=== PATIENT | male | born 2000 | race Caucasian/White ===

== ENCOUNTER → 2018-10-23 14:18 | Outpatient (CLI) | payer BC, SELFPAY ==
[2018-10-23 12:19] VITALS: BMI 24.3
== END ==
PROVIDERS: Family Provider Pediatrics; PCP Pediatrics; Referring Provider Physician Assistant; Visit Provider Physician Assistant
DX: K12.0 Recurrent oral aphthae (principal)
CPT/HCPCS: 87070

== ENCOUNTER → 2018-11-14 16:45 | Outpatient (CLI) | payer OTHER, BC, SELFPAY ==
[2018-11-14 16:25] VITALS: BMI 24.3
--- NOTE | 2018-11-14 16:50 | RAD_ITS ---
STUDY: X-RAY CHEST REASON FOR EXAM: Male, 18 years old. Cough TECHNIQUE: PA and lateral views of the chest. COMPARISON: None. FINDINGS: The lungs are clear and expanded. There is no demonstrated pleural abnormality. Normal size heart. Normal mediastinum and carol ann. Normal visualized pulmonary arteries. Normal visualized aortic arch and descending thoracic aorta. Normal visualized thoracic spine. Normal visualized ribs, clavicles, and shoulders. There is no demonstrated abnormality of the visualized soft tissue structures of the upper abdomen. RAD/Chest PA and Lateral IMPRESSION: Normal x-ray examination of the chest. Electronically Signed: Jeremi Guillermo MD at 17:05 EST , Service support ,
--- OUTSIDE RECORDS SUMMARY | 2019-01-19 08:00 | XMS RPT_ITS ---
:2000 Author Organization OHIP Care Team Providers Name Role Phone ANISA CHOU Attending Unavailable REFERRED, SELF Referring Unavailable ANISA CHOU Primary Care Unavailable Abdias Bird Attending Unavailable Anisa Chou Referring Unavailable Abdias Bird Attending Unavailable Abdias Bird Referring Unavailable Anisa Chou Primary Care Unavailable Mau Sawant SOFTWARE ENGINEERING SPECIALIST-C Attending Unavailable Anisa Chou Referring Unavailable Bruce Franks Attending Unavailable Anisa Chou Referring Unavailable Bruce Franks Attending Unavailable Bruce Franks Referring Unavailable Anisa Chou Primary Care Unavailable PROBLEMS PROBLEMS DATE TYPE CONDITION / CODE ATTENDING STATUS SOURCE 11/14/2018 Unknown J20.9 - Acute Bruce Franks Active [place] bronchitis, Community unspecified / Hospital J20.9(ICD-10) Repository 11/10/2018 Unknown J06.9 - Acute Mau Sawant Active [place] upper respiratory SOFTWARE ENGINEERING SPECIALIST-C Community infection, Hospital unspecified / Repository J06.9(ICD-10) 11/10/2018 Unknown J45.901 - Mau Sawant Active [place] Unspecified asthma SOFTWARE ENGINEERING SPECIALIST-C Community with (acute) Hospital exacerbation / Repository J45.901(ICD-10) 11/10/2018 Unknown K12.0 - Recurrent Abdias Bird Active [place] oral aphthae / Community K12.0(ICD-10) Hospital Repository PROCEDURES PROCEDURES No Procedure Records FoundRESULTS RESULTS URGENT CARE VISIT Observed: 11/14/2018 Status: F Source: [place] REPORT 6:28 PM [facility] [place] [facility] [address] [place] [address] [address] [place] [address] OFFICE VISIT Date of Service: 11/14/18 MR#: [id number] Acct: [id number] Name: MICHAEL ORDOÑEZ Rep #: [id number] : 2000 Provider: Bruce NOE Age/Sex: 18/M Location: [facility] Status: Signed Intake Vital Signs11/14/18 Body Mass Index (BMI) 24.3 11/14/18 Weight: 223 lb 11/14/18 Blood Pressure 128/88 H Intake Visit Reasons: CONGESTION Chief Complaint: CONGESTION Is patient in pain?: No Allergies No Known Allergies Allergy (Verified 11/14/18 16:24) Medications albuterol sulfate HFA 90 mcg/actuation aerosol inhaler 1 puff INHALATION Q6H PRN #8 g 11/08/18 [Rx Confirmed 11/08/18] prednisone 20 mg tablet 40 mg PO QDAY #10 tab 11/08/18 [Rx Confirmed 11/08/18] cephalexin 500 mg capsule 500 mg PO Q12H 10 Days #20 cap 11/14/18 [Rx Confirmed 11/14/18] ipratropium-albuterol 0.5 mg-3 mg(2.5 mg base)/3 mL nebulization soln 3 ml INHALATION Q8H 5 Days #90 ml 11/14/18 [Rx Confirmed 11/14/18] PFSH Medical History Asthma (Acute) NECK/BACK PAIN (Acute) Severe headache (Acute) Surgical History History of tonsillectomy (Acute) Social History Smoking Status: Never smoker alcohol intake: never HPI HPI Chief Complaint: CONGESTION Details: MICHAEL ORDOÑEZ, is a 18 M who presents to the office today for ongoing chest congestion, cough for the past 3 weeks. Patient was seen here on 11/08/2018 for similar symptoms and states that the medications that he had at that point had no effect on his cough. He reports that his cough has been productive of phlegm however denies hemoptysis, shortness of breath or difficulty breathing other than some slight shortness of breath after a coughing fit. Patient does state that he has been using his albuterol inhaler which does help somewhat with the bronchospasms however they returned shortly thereafter. He denies fever, chills, sweats. No nausea, vomiting, diarrhea. No other associated symptoms or alleviating/aggravating factors. ROS Const Constitutional: No fever(s), chills, headache(s), night sweats or abnormal sleep pattern ENT ENT: Positive for nasal discharge, nasal congestion and post nasal drip; no headache(s), ear pain, ear discharge or sore throat Resp Respiratory: Positive for cough Cough: Yes productive, wheezing and pain with cough; no hemoptysis or shortness of breath Cardio Cardiology: No chest pain at rest or shortness of breath Neuro Neurology: No headache(s), behavioral changes or confusion Psych Psychiatric: No abnormal sleep pattern, No behavioral changes, No confusion Aller/Imm Allergy/Immunologic: Positive for wheezing Exam Const General: cooperative, well developed [facility] Head: normal to inspection Ears: hearing grossly normal bilaterally Nose: nasal discharge clear Mouth: oral mucosae normal Throat: abnormal tonsil bilaterally, postnasal drainage Resp Effort AND Inspection: normal respiratory effort, no audible wheezes, not labored, able to speak in complete sentences, symmetric chest movement, cough Quality of cough: dry Auscultation: Bilateral: Crackles (Crackles did improve after forceful cough.) Cardio Palpation: normal PMI Rate: regular rate Rhythm: regular rhythm Neuro General: alert, CN's II-XI intact bilaterally Psych Appearance: grossly normal Mental Status: mental status grossly normal Assessment AND Plan Problems 1. Acute bronchitis, unspecified organism J20.9 Status Acute Plan Chest x-ray revealing a normal x-ray of the chest per radiologist interpretation. Patient states that he does have a nebulizer at home therefore he was started on DuoNeb 3 times daily for the next 5 days as well as Keflex 500 mg twice daily for 10 days. Encouraged to get plenty of rest, drink lots of clear liquids, and use Tylenol or Ibuprofen (unless contraindicated) for fever and comfort. Patient also educated on other symptomatic management techniques. To be seen in 7-10 days if no improvement; sooner if worsening of symptoms. Patient advised of potential red flags including but not limited to worsening shortness of breath, hemoptysis and other signs of respiratory worsening and when appropriate to report to the ED. Patient verbalized understanding and agreement with all the above. Orders Orders: Medications New: ipratropium-albuterol 0.5 mg-3 mg(2.5 mg base)/3 mL Inhalation Q8H 5 days 90 mL 0RF J20.9 3 mL Coding Level of Care Code Off vis,est,level 4 Diagnoses Acute bronchitis, unspecified organism J20.9 Bronchitis organism: unspecified organism 11/14/18 1828 <Electronically signed by Bruce NOE> Date Bruce NOE Cosigner Signature: Date (if applicable) CC: CHEST PA AND LATERAL Observed: 11/14/2018 Status: F Source: [place] 4:50 PM [facility] [place] [facility] Imaging Services [address] [place] [id number] Chest PA and Lateral MR#: [id number] Acct: [id number] Name: MICHAEL ORDOÑEZ Rep #: [id number] : 2000 M 18 From: Jeremi Guillermo MD PCP: Anisa Chou MD Status: REG CLI Study: Chest PA and Lateral Date of Exam: 11/14/18 Exam# [id number] Ordering Dr: Bruce Franks STUDY: X-RAY CHEST REASON FOR EXAM: Male, 18 years old. Cough TECHNIQUE: PA and lateral views of the chest. COMPARISON: None. FINDINGS: The lungs are clear and expanded. There is no demonstrated pleural abnormality. Normal size heart. Normal mediastinum and carol ann. Normal visualized pulmonary arteries. Normal visualized aortic arch and descending thoracic aorta. Normal visualized thoracic spine. Normal visualized ribs, clavicles, and shoulders. There is no demonstrated abnormality of the visualized soft tissue structures of the upper abdomen. RAD/Chest PA and Lateral IMPRESSION: Normal x-ray examination of the chest. Electronically Signed: Jeremi Guillermo MD at 17:05 EST , Service support , CC: Bruce NOE; Anisa Chou MD Local Sales Associate: Signed URGENT CARE VISIT Observed: 11/08/2018 Status: F Source: [place] REPORT 2:18 PM [facility] [place] [facility] [address] [place] [address] OFFICE VISIT Date of Service: 11/08/18 MR#: [id number] Acct: [id number] Name: MICHAEL ORDOÑEZ Alex Rep #: [id number] : 2000 Provider: Mau Sawant NP Age/Sex: 18/M Location: [facility] Status: Signed Intake Vital Signs11/08/18 Body Mass Index (BMI) 24.3 11/08/18 Height 6 ft 11/08/18 Weight: 223 lb 11/08/18 Body Mass Index (BMI) 30.2 11/08/18 Blood Pressure 118/70 11/08/18 Respiratory Rate 14 Intake Visit Reasons: COLD/CONGESTION Chief Complaint: 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: No Accompanied by: SELF Is patient in pain?: No Allergies No Known Allergies Allergy (Verified 11/08/18 11:45) Medications albuterol sulfate HFA 90 mcg/actuation aerosol inhaler 1 puff INHALATION Q6H PRN #8 g 11/08/18 [Rx Confirmed 11/08/18] azithromycin 250 mg tablet See Rx Instructions PO .COMPLEX #6 tab 11/08/18 [Rx Confirmed 11/08/18] prednisone 20 mg tablet 40 mg PO QDAY #10 tab 11/08/18 [Rx Confirmed 11/08/18] PFSH Medical History Asthma (Acute) NECK/BACK PAIN (Acute) Severe headache (Acute) Surgical History History of tonsillectomy (Acute) Social History Smoking Status: Never smoker alcohol intake: never HPI HPI Chief Complaint: CONGESTION Details: MICHAEL ORDOÑEZ, is a 18 M who presents to the office today for an acute visit of cough and chest congestion times 2 weeks. He has a past medical history of asthma was previously on Advair, however is no longer on any maintenance medication. The patient states that his symptoms of cough congestion has been going on for approximately 2 weeks and has been progressively worsening. He has tried bicy-sed-expvlhk DayQuil and NyQuil with only mild relief. He states that his cough is productive of yellow mucus and that at times he feels chest tightness with coughing. He denies any recent exposure to sick contacts. He denies any other ijzd-nvp-atfoshh treatments. He denies any other aggravating or relieving factors. He otherwise denies any fever, chills, nausea, vomiting, shortness of breath, chest pain or pressure, syncope or presyncopal episode. ROS Const Constitutional: No fever(s), chills, weakness, change in appetite, sleep problems, fatigue, malaise or frequent falls Eyes Eyes: No blurry vision, change in vision, double vision or discharge ENT ENT: Positive for nasal congestion; no abnormal hearing, ear pain, ear pressure or dizziness/vertigo Resp Respiratory: Positive for cough and chest congestion (Chest tightness); no wheezing or shortness of breath Cardio Cardiology: No chest pain at rest, chest pain with exertion, shortness of breath, dyspnea on exertion, lightheadedness, irregular heart rhythm, fast heart rate, palpitations, orthopnea or generalized swelling Gastro GI: No abdominal pain, change in bowel habits, constipation, diarrhea, vomiting or nausea/dyspepsia Musc Musculoskeletal: No joint pain, back pain, limited range of motion, joint swelling, muscle weakness, tingling or numbness Skin Skin: No change in skin color, wounds, rash or itching Neuro Neurology: No weakness, frequent falls, abnormal hearing, tingling, numbness, unsteady gait/balance, dizziness, loss of vision or memory loss Psych Psychiatric: No change in appetite, No memory loss, No anxiety, No depression, No Thoughts of harming yourself/Others Endo Endocrine: No fatigue, increased thirst/drinking, increased urination, increased hunger or heat intolerance Aller/Imm Allergy/Immunologic: No wheezing, itchy eyes or seasonal allergy symptoms Servando/Lymp Hematologic/Lymphatic: No easy bleeding, easy bruising or enlarged lymph nodes Exam Const General: cooperative, comfortable, no acute distress Nutritional Appearance: average body habitus, well nourished Orientation: alert, oriented x3 Limitations: mental status not altered HENMT Head: normal to inspection Ears: hearing grossly normal bilaterally Nose: external nose normal Resp Effort AND Inspection: normal respiratory effort, able to speak in complete sentences, cough Other: Scattered rhonchi noted to the left posterior lung base and expiratory wheezing in all posterior lung zheng as well, some of the wheezing did clear with coughing Cardio Palpation: normal PMI Rate: regular rate Heart Sounds: S1 normal, S2 normal, normal S1 and S2, no click, no gallops, no murmurs, no rubs Musc Musculoskeletal: No muscle weakness Skin General: no rashes or lesions noted, elasticity normal, turgor normal Lesions: no lesions Rashes: no rashes Neuro General: alert, awake, oriented x3, CN's II-XI intact bilaterally Speech: speech normal Gait: normal gait Motor: muscle tone normal throughout Extrem General: normal to inspection, normal gait, no edema, no pedal edema Psych Appearance: grossly normal Mental Status: mental status grossly normal Affect: normal affect Attitude: cooperative Thought Process: normal Assessment AND Plan Problems 1. URI (upper respiratory infection) J06.9 2. Asthma exacerbation J45.901 Plan Given patient's presenting signs and symptoms and his assessment will cover him for an asthma exacerbation with a prednisone burst, albuterol inhaler and we will treat empirically with azithromycin. Educated patient on potential side effects of medications and how to properly take them. Did inform patient that he should follow-up with his PCP for reassessment. He may continue treating his upper respiratory symptoms with his zdxx-wkd-hyzzrly cold preparations. Advised to watch the total intake of Tylenol. Discussed signs of worsening symptoms that require urgent medical attention. Patient verbalized understanding. Dragon disclaimer Medications New: azithromycin Take two tablets by mouth on day one then one tablet by mouth on days 2-5 6 tabs 0RF albuterol sulfate HFA 90 mcg/actuation (Vento1 puff Inhalation Q6H PRN 8 grams 0RF shortn erica HFA) ess of breath or wheezing Coding Level of Care Code Off vis,est,level 3 Diagnoses URI (upper respiratory infection) J06.9 Asthma exacerbation J45.901 11/08/18 1418 <Electronically signed by Mau JOHN> Date Mau JOHN Cosigner Signature: Date (if applicable) CC: URGENT CARE VISIT Observed: 10/23/2018 Status: F Source: [place] REPORT 12:33 PM [facility] [place] [facility] [place] [address] OFFICE VISIT Date of Service: 10/23/18 MR#: [id number] Acct: [id number] Name: MICHAEL ORDOÑEZ Rep #: [id number] : 2000 Provider: Abdias NOE Age/Sex: 18/M Location: [facility] Status: Signed Intake Vital Signs10/23/18 Body Mass Index (BMI) 24.3 10/23/18 Height 6 ft 10/23/18 Weight: 223 lb 10/23/18 Body Mass Index (BMI) 30.2 10/23/18 Blood Pressure 120/74 Intake Visit Reasons: SORE ON THE BACK OF THE THROAT Chief Complaint: 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 Patient notes localized tenderness to the same, being concerned as he chews tobacco for approximately 2 years to date. He notes no complaints of fever, chills, sweats, rash, cough, chest pain/shortness of breath, weight gain/loss. He has taken no owmy-atu-umyzcrm products to assist with symptoms. He notes no other associated symptoms and no other alleviating or aggravating factors. ROS Const Constitutional: No other (ROS negative x10 other than as noted above) Exam Const General: cooperative, healthy appearing, no acute distress, comfortable Nutritional Appearance: average body habitus Orientation: alert, awake, oriented x3 HENMT Head: normal to inspection Ears: hearing grossly normal bilaterally, external ears normal, TM's normal bilaterally, EAC's normal Nose: external nose normal, nares normal, septum normal, no nasal discharge Face and sinus: normal facial exam, face symmetric, sinuses nontender Mouth: abnormal oral mucosae (Erythematous open ulceration posterior palate), tongue normal, lip normal, other (Rapid strep test today negative) Teeth and gingiva: dentition normal, gingiva normal Throat: uvula midline, posterior oropharynx normal, no postnasal drainage Eyes General: appearance normal, both eyes and all related structures Neck Neck: normal visual inspection, full ROM, no lymphadenopathy, no meningeal signs, supple Neck mass: No Thyroid: thyroid normal Lymphatic: no lymphadenopathy noted Chest Chest palpation AND inspection: normal inspection of the chest Resp Effort AND Inspection: normal respiratory effort, able to speak in complete sentences Auscultation: Bilateral: Clear to Auscultation Cardio Palpation: normal PMI Rate: regular rate Rhythm: regular rhythm Heart Sounds: S1 normal, S2 normal, no gallops, no murmurs, no rubs Pulses: radial pulses present GI Inspection: normal to inspection Palpation: soft, no hepatosplenomegaly Skin General: no rashes or lesions noted Neuro General: alert, awake, oriented x3, gait normal Cognition: normal cognition Speech: speech normal Gait: normal gait Motor: muscle tone normal throughout Sensory Exam: no sensory deficits noted Psych Appearance: grossly normal Mental Status: mental status grossly normal Mood: congruent mood Affect: normal affect Speech and Movement: speech and movement normal Attitude: cooperative Thought Process: normal Thought Content: normal Judgment: judgment good Assessment AND Plan Problems 1. Aphthous ulcer of mouth K12.0 Plan - By presentation. Patient aware today's rapid strep test was negative therefore culture of ulceration sent to lab for further evaluation. Supportive measures as instructed today. Clear fluids, rest, Advil/Tylenol as needed for symptomatic relief. Follow-up with PCP in 5-7 days should symptoms not improve, sooner should symptoms worsen or any other concerns develop. Patient states acknowledging understanding all the above. This note was generated with [employer] dictation software. It may contain incorrect words, spelling, and punctuation that were not noted in checking the note before signing. Coding Level of Care Code Off vis,new,level 3 Diagnoses Aphthous ulcer of mouth K12.0 10/23/18 1233 <Electronically signed by Abdias NOE> Date Abdias NOE Cosigner Signature: Date (if applicable) CC: Observed: 10/23/2018 Status: F Source: [place] CULTURE, THROAT 12:30 PM [facility] [place] Culture, Throat Normal throat jyotsna isolated. No beta-hemolytic streptococcus isolated. Performed By: #### M100.1000 #### [facility] [place], [address] PROGRESS NOTE Observed: 04/15/2018 Status: COMPLETED Source: [place] 11:10 AM [facility] REPOSITORY Patient ID: Michael Ordoñez is a 17 y.o. male. His chief complaint(s) include: 17 YEAR WELL CHILD Assessment 1. Routine general medical examination at a health care facility Plan Michael was seen today for 17 year well child. Diagnoses and all orders for this visit: Routine general medical examination at a health care facility - Behavioral/Emotional Assessment w Score - PHQ-9 Return in about 1 year (around 04/15/2019) for well check. Letter written for getting into army. Subjective HPI Comments: Patient had been going through a lot in 2013 like changing schools and family divorce. Patient had issues with sleeping and PVCs as well at that time. Patient now wanting to go into army and needs explanation for these diagnoses. He is unaccompanied. 17 YEAR WELL CHILD School and Activities School Grade: work force. His school performance includes: doing well. Home: Michael eats meals with family, has an adult to turn to for help and is permitted and able to make independent decisions. Eating: Michael eats regular meals including fruits and vegetables, eats breakfast, limits fast food, drinks non-sweetened liquids and has a calcium source. Activities & Sports: He has friends and has a job. Drugs: He does not use tobacco, does not use drugs and does not use alcohol. Safety: He has a violence free home, has peer relationships free from violence and uses seat belt. Sex: Michael is sexually active. STD screening offered and declined. Michael always uses condoms. Suicidality: He has no anxiety, does not have mood swings, has no suicidal ideation and has no homicidal ideation. Output Urine and Stool Pattern: Urine and Stool Pattern: Normal stool pattern, normal urine pattern. Stool Consistency: soft Sleep Sleeping Difficulty: no difficulty sleeping Hours of sleep at a time: 8 Teen Anticipatory Guidance The following anticipatory guidance was reviewed during the visit: Nutrition: limit junk food/fast food and soft drinks. Safety: home safety. Health: age appropriate dental care, age appropriate sleep habits, elevated noise and hearing, avoid situations where drugs and alcohol are present, don't smoke or chew tobacco, learn how to say 'no' to sex, puberty/sexual development/contraceptions/STDs and limit sun exposure/use sunscreen. CRAFFT Assessment Has not used alcohol or other drugs. Has not ridden in a CAR driven by someone (including self) who was high or had been using alcohol or drugs. Screenings Previous Vaccine Reactions: No. Life events information was reviewed-no referral needed Hearing Vision Concerns: The caregiver has no concerns about the patient's hearing. The caregiver has no concerns about the patient's vision. Primary Care Review of Systems Objective Vitals: 04/15/18 1101 BP: (!) 159/59 Pulse: 75 Weight: 97.5 kg Height: 179 cm Body mass index is 30.43 kg/m . Physical Exam Constitutional: He appears well. He is active. No distress. HENT: Head: Atraumatic. Right Ear: Tympanic membrane and external ear normal. Left Ear: Tympanic membrane and external ear normal. Nose: Nose normal. Mouth/Throat: Mucous membranes are moist. Dentition is normal. Oropharynx is clear. Eyes: Conjunctivae and EOM are normal. No strabismus. Pupils are equal, round, and reactive to light. Neck: Normal range of motion. Neck supple. Thyroid normal. No neck adenopathy. Cardiovascular: Normal rate, regular rhythm, S1 normal and S2 normal. Pulses are palpable. No murmur heard. Pulmonary/Chest: Breath sounds normal. No respiratory distress. Exhibits no deformity. Abdominal: Soft. Bowel sounds are normal. He exhibits no distension and no mass. There is no hepatosplenomegaly. There is no tenderness. Genitourinary: Testes normal and penis normal. No inguinal hernia noted. Musculoskeletal: Normal range of motion. Back: He exhibits no scoliosis. Neurological: He is alert. He has normal strength. He exhibits normal muscle tone. Gait normal. Skin: No rash noted. No pallor. Skin is warm. Vitals reviewed: Blood pressure (!) 159/59, pulse 75, height 179 cm, weight 97.5 kg. ALLERGIES ALLERGIES DATE TYPE / CODE NAME / CODE REACTION SEVERITY SOURCE 11/14/2018 Drug No Known Unknown [place] Allergy/555313084(S Allergies/F0019 Formerly [facility] NOMED [place]) [address](RXNORM) Hospital Repository Miscellaneous NO KNOWN [place] Allergy/[id number](S ALLERGIES [facility] Hospital Repository ENCOUNTERS ENCOUNTERS ADMIT/DISCHARGE ACCOUNT ADMITTING ENCOUNTER LOCATION SOURCE NUMBER CLASS 11/14/2018 [id number] Ambulatory [facility] ing:MTRAD Repository 11/14/2018/11/14/19 [id number] Ambulatory BMSBuilding:B [place] [facility] [place] Repository 11/08/2018/11/08/19 [id number] Ambulatory B[facility]Building:B [place] [facility] [place] [facility] Repository 10/23/2018 [id number] Ambulatory [facility] ing:LABSPEC Repository 10/23/2018/10/23/20 [id number] Ambulatory BMSBuilding:B [place] [facility] [place] Repository 04/15/2018/04/15/20 [id number] Ambulatory Building:[address] Repository PAYERS PAYERS ENCOUNTER GUARANTOR PAYER SUBSCRIBER SOURCE 11/14/2018 MICHAEL Johnson Primary CESAR MASSEYDOB: [place] [id number] [place] Insurance:CIGNAPolicpeggy [id number] [facility], Number: [facility] [address]Dvv: [id number] Repository Date:1787-29-14FS [address] () [id number], [place] [address]VL: 11/14/2018 Secondary DAVID CRANDALLB: [place] Insurance:ANTHEMPolicy [id number] Formerly [facility] Number: [facility] [id number] Repository Date:2936-61-92WZ [address] [place] [address]NX: 11/14/2018 Tertiary NOT GIVENUNK [place] Insurance:SELF PAY [facility] Number: Effective Repository Date:2018-11-14 11/14/2018 MICHAEL Johnson Primary CESAR MASSEYDOB: [place] [id number] [place] Insurance:CIGNAPolicy [id number] [facility], Number: [facility] [address]Ruw: [id number] Repository Date:8908-59-11AP [address] () [address], [place] [address]DD: 11/14/2018 Secondary DAVID E ELDERDOB: [place] Insurance:ANTHEMPolicy [id number] Community Number: Hospital [id number] Repository Date:4848-89-89ZJ [id number] [place] [address]RB: 11/14/2018 Tertiary NOT GIVENUNK [place] Insurance:SELF PAY [facility] Number: Effective Repository Date:2018-11-14 11/08/2018 MICHAEL Johnson Primary CESAR MASSEYDOB: [place] [id number] [place] Insurance:CIGNAPolicy [id number] [facility]ly [facility], Number: [facility] [address]Yly: [id number] Repository Date:7471-75-82DB [address] () [place], [place] [address]PJ: 11/08/2018 Secondary DAVID E ELDERDOB: [place] Insurance:ANTHEMPolicy [id number] Community Number: Hospital [id number] Repository Date:8912-78-90PG [id number] [place] [address]VA: 11/08/2018 Tertiary NOT GIVENUNK [place] Insurance:SELF PAY [facility] Number: Effective Repository Date:2018-11-08 10/23/2018 MICHAEL Johnson Primary DAVID E ELDERDOB: [place] [id number] [place] Insurance:ANTHEMPolicy [id number] [facility]ly [facility], Number: [facility] [id number]: [id number] Repository Date:4873-43-29TW [address] () [address], [place] [address]QW: 10/23/2018 Secondary NOT GIVENUNK [place] Insurance:SELF PAY [facility] Number: Effective Repository Date:2018-10-23 10/23/2018 MICHAEL Johnson Primary David E ElderDOB: [place] [id number] [place] Insurance:ANTHEMPolicy [id number] Formerly [facility] [address] Number: [place], [place] [address]Onq: [id number] Repository Date:1983-26-90FT [address] () [address], [place] [address]SP: 10/23/2018 Secondary NOT GIVENUNK [place] Insurance:SELF PAY [facility] Number: Effective Repository Date:2018-10-23 04/15/2018 MICHAEL Johnson Primary CESAR GILESB: Nidhi CRANDALLB: Insurance:LOIZA [id number] Children's [id number] [facility] [place] Number: [place] Repository [facility], [id number] [place] [address]Len: Date: () 04/15/2018 Secondary DAVID [place] Insurance:Juventino CRANDALLB: Children's Number: [id number] [facility] [id number] Repository Date: [address], [place] [address]
== END ==
PROVIDERS: Family Provider Pediatrics; PCP Pediatrics; Referring Provider Physician Assistant Surgical; Visit Provider Physician Assistant Surgical
DX: J20.9 Acute bronchitis, unspecified (principal)
CPT/HCPCS: 71046

== ENCOUNTER → 2019-04-27 | Outpatient (CLI) | payer OTHER, BC, SELFPAY ==
[2018-11-14 16:25] VITALS: BMI 24.3
--- NOTE | 2019-04-27 08:32 | RAD_ITS ---
STUDY: X-RAY - LEFT ANKLE REASON FOR EXAM: Male, 18 years old. Rolled ankle and pain TECHNIQUE: 3 view(s) of the ankle. COMPARISON: None. FINDINGS: Normal visualized distal tibia and fibula. Normal medial and lateral malleoli. Normal tibiotalar articulation and ankle mortise. Normal visualized talus and calcaneus. The visualized subtalar, talonavicular, calcaneocuboid and tarsal articulations are normal. Lateral soft tissue swelling. RAD/Ankle min 3 Views IMPRESSION: No acute osseous injury is evident. Electronically Signed: Benjamin Lyon MD at 8:54 EDT Tel , Service support ,
--- NOTE | 2019-04-27 08:32 | RAD_ITS ---
STUDY: X-RAY - LEFT FOOT CLINICAL: Male, 18 years old. Rolled ankle, lateral swelling TECHNIQUE: 3 view(s) of the foot. COMPARISON: None. FINDINGS: Normal talus, calcaneus, and tarsal bones. Normal visualized subtalar, talonavicular, calcaneocuboid, tarsal and tarsometatarsal articulations. Normal metatarsi. Normal metatarsophalangeal joint of the great toe. Normal tibial and fibular sesamoid bones. Normal interphalangeal joint of the great toe. Normal phalanges of the great toe. Normal second through fifth metatarsophalangeal joints. Normal interphalangeal joints and phalanges of the lesser toes. The soft tissue structures are unremarkable. RAD/Foot min 3 Views IMPRESSION: No acute osseous injury is evident. Electronically Signed: Benjamin Lyon MD at 9:03 EDT Tel , Service support ,
== END | disposition home or self-care (01) ==
PROVIDERS: Family Provider Pediatrics; PCP Pediatrics; Referring Provider Physician Assistant; Visit Provider Physician Assistant
DX: S99.912A Unspecified injury of left ankle, initial encounter (principal); S99.922A Unspecified injury of left foot, initial encounter
CPT/HCPCS: 73610; 73630

== ENCOUNTER → 2019-07-20 08:37 | Outpatient (CLI) | payer OTHER, SELFPAY ==
[2019-07-20 08:14] VITALS: BMI 24.3
[2019-07-20 12:28] LABS: Basophil# 0.06 X10^3/uL; Basophil% 0.9 % (0-1); Eosinophil# 0.13 X10^3/uL; Hematocrit 46.7 % (40-54); Hemoglobin 15.1 g/dL (13.0-16.5); Lymphocyte % 25.8 % (19-41); Mean Corp Hgb Conc 32.3 g/dL (32-36); Mean Corpuscular Hgb 28.5 pg (27.0-32.0); Mean Corpuscular Volume 88.3 fL (80-94); Mean Platelet Vol. 10.9 fl (6.2-12.0); Monocyte# 0.74 X10^3/uL; Monocyte% 11.2 % (0-10); NRBC Flagged by Analyzer 0 % (0-5); Neutrophil # 3.95 X10^3/uL (2.7-7.7); Neutrophil % 59.8 % (47-70); Platelet Count 232 K/mm3 (150-450); RBC Distribution Width CV 11.9 % (11.6-14.6); RBC Distribution Width SD 38.1 fl (35.1-43.9); Red Blood Count 5.29 M/mm3 (4.6-6.2); White Blood Count 6.6 K/mm3 (4.4-11.0)
[2019-07-20 12:45] LABS: ALB/GLOB Ratio 1.1 RATIO (0.9-2.4); AST(SGOT) 17 U/L (15-37); Alanine Aminotransfer ALT/SGPT 37 U/L (16-61); Albumin, Serum 4.1 g/dL (3.2-5.0); Alkaline Phosphatase 74 U/L (45-117); Anion Gap 5 (5-15); BUN 20 mg/dL (7-18); BUN/Creat Ratio 18.2 RATIO (10-20); Calcium,Total 9.1 mg/dL (8.5-10.1); Chloride 107 mmol/L (98-107); Cholesterol 145 mg/dL (200); EST Glomerular Filtration Rate 90 mL/min (>60); Est Glom Filt Rate - Afr Amer 109 mL/min (>60); Globulin 3.6 g/dL (2.2-4.2); Glucose 97 mg/dL (74-106); High Density Lipoprotein 32 mg/dL; Potassium 4.9 mmol/L (3.5-5.1); Protein, Total 7.7 g/dL (6.4-8.2); Sodium Level 141 mmol/L (136-145); Thyroid Stim Hormone (TSH) 2.43 uIU/mL (0.358-3.74); Triglycerides 110 mg/dL; Very Low Density Lipoprotein 22 mg/dL (5-40)
== END ==
PROVIDERS: Family Provider Pediatrics; PCP Internal Medicine; Visit Provider Internal Medicine
DX: I49.3 Ventricular premature depolarization (principal); J45.909 Unspecified asthma, uncomplicated; R03.0 Elevated blood-pressure reading, without diagnosis of hypertension
CPT/HCPCS: 36415; 80053; 80061; 84439; 84443; 85025

== ENCOUNTER → 2020-08-08 | Outpatient (CLI) | payer OTHER, SELFPAY ==
[2020-08-03 16:07] VITALS: BMI 24.3
--- NOTE | 2020-08-08 07:44 | EKG12_ITS ---
Test Reason : Blood Pressure : / mmHG Vent. Rate : 077 BPM Atrial Rate : 077 BPM P-R Int : 166 ms QRS Dur : 096 ms QT Int : 368 ms P-R-T Axes : 022 005 024 degrees QTc Int : 416 ms Normal sinus rhythm with sinus arrhythmia Normal ECG Confirmed by THAD GAN, DANYEL ([id number]), web content editor CHAPARRITA HOOKER ([id number]) on 08/09/2020 1:08:27 PM Referred By: Tania Bojorquez Confirmed By:DANYEL ONEIL MD
== END | disposition home or self-care (01) ==
PROVIDERS: PCP Internal Medicine; Referring Provider Internal Medicine; Visit Provider Internal Medicine
DX: L90.6 Striae atrophicae (principal); R00.2 Palpitations; R07.89 Other chest pain
CPT/HCPCS: 36415; 82533; 93005

== ENCOUNTER → 2020-08-23 | Outpatient (CLI) | payer OTHER, SELFPAY ==
[2020-08-03 16:07] VITALS: BMI 24.3
--- NOTE | 2020-08-23 11:50 | ECHOCS_ITS ---
Reason For Study: Palpitations Procedure This was a 2D Doppler, Color Flow transthoracic echocardiogram. The study was technically difficult. Contrast injection was performed. Exam performed in department. Left Ventricle Normal LV size. Left ventricular systolic function is normal. The estimated ejection fraction is 60 %. Transmitral doppler flow suggestive of impaired relaxation of left ventricle. No regional wall motion abnormalities noted. Right Ventricle Normal RV size. Normal systolic function. Atria Normal left atrium. Normal right atrium. No doppler evidence for ASD. Mitral Valve There is no mitral annular calcification. Normal mitral valve. Trivial mitral valve insufficiency. Tricuspid Valve Normal tricuspid valve. Trivial tricuspid valve insufficiency. Unable to estimate RV systolic pressure/pulmonary artery pressure due to technically difficult study. Aortic Valve Trisinus/trileaflet aortic valve. Normal aortic valve. Pulmonic Valve The pulmonic valve is not well visualized. Trivial pulmonic valve insufficiency. Great Vessels The aortic root is not well visualized. Pericardium/Pleural No pericardial effusion. Medication 22 gauge I.V. with prn adaptor inserted into right arm. Diluted definity 2ml given slow IV push to enhance endocardial definition. MMode/2D Measurements & Calculations LVIDd: 5.2 cm IVSd: 1.2 cm LA dimension: 3.6 cm LVIDs: 3.2 cm LVPWd: 1.1 cm FS: 37.6 % LAV(MOD-bp): 35.4 ml LA A4 area: 15.2 cm2 RA A4 area: 15.7 cm2 LAV(MOD-bp) Indexed: 15.4 ml/m2 LAV(MOD-sp2): 29.9 ml LAV(MOD-sp4): 34.0 ml Time Measurements MV dec time: 0.17 sec Doppler Measurements & Calculations MV E max cristofer: 56.0 cm/sec Lat Peak E' Cristofer: 10.6 cm/sec Med Peak E' Cristofer: 8.4 cm/sec MV A max cristofer: 78.6 cm/sec E/E' lat: 5.3 E/E' med: 6.7 MV E/A: 0.71 MV V2 max: 85.3 cm/sec MV P1/2t max cristofer: 73.2 cm/sec Ao V2 max: 122.1 cm/sec MV max P.9 mmHg MV P1/2t: 76.5 msec Ao max P.0 mmHg MV V2 mean: 46.5 cm/sec MV dec slope: 280.4 cm/sec2 MV mean P.99 mmHg MV V2 VTI: 22.1 cm MVA(P1/2t): 2.9 cm2 LV V1 max: 98.4 cm/sec PA V2 max: 94.4 cm/sec LV V1 max P.9 mmHg Interpretation Summary The study was technically difficult. Contrast injection was performed. Left ventricular systolic function is normal. The estimated ejection fraction is 60 %. Trivial mitral valve insufficiency. Trivial tricuspid valve insufficiency. Trivial pulmonic valve insufficiency. Unable to estimate RV systolic pressure/pulmonary artery pressure due to technically difficult study. Transmitral doppler flow suggestive of impaired relaxation of left ventricle Ordering Physician: Tania Bojorquez Referring Physician: Tania Bojorquez Performed By: Jaquan Emerson RCS
--- NOTE | 2020-08-23 13:18 | STRESSREP_ITS ---
Stress Test Report Date: 08-23-2020 Procedure: Exercise tolerance test Indications: PVCs Consent: Per the patient Procedure: The patient exercised on a Shawn protocol for 6 minutes completing Stage II achieving a peak heart rate of 171 bpm (86% predicted maximal heart rate) with a peak blood pressure 194/70 mmHg and a peak MET capacity of approximately 7 MET's. The baseline ECG demonstrated normal sinus rhythm. The peak exercise ECG demonstrated no obvious ECG changes. There was an isolated PAC during exercise. The functional capacity was considered average. The patient had no complaint of chest discomfort during exercise or recovery. The examination was discontinued secondary to dyspnea. Impression: 1. Technically adequate (percent predicted maximal heart rate greater than 85%) exercise tolerance test 2. Peak exercise ECG with no obvious ECG changes 3. There was an isolated PAC during exercise This note was generated with veriCAR dictation software. It may contain incorrect words, spelling, and punctuation that were not noted in checking the note before signing.
== END | disposition home or self-care (01) ==
LOC: CVS 11:49
PROVIDERS: PCP Internal Medicine; Referring Provider Internal Medicine; Visit Provider Internal Medicine
DX: I49.3 Ventricular premature depolarization (principal); R00.2 Palpitations
CPT/HCPCS: 93017; 93306; Q9957; A4216; C8929

== ENCOUNTER → 2020-08-30 16:22 | Outpatient (CLI) | payer OTHER, SELFPAY ==
[2020-08-30 16:01] VITALS: BMI 32.5
[2020-08-30 17:30] LABS: D-Dimer Quantitative (DVT/PE) < 0.27 FEU/ug/m (0.27-0.49)
== END ==
PROVIDERS: PCP Internal Medicine; Referring Provider Internal Medicine; Visit Provider Internal Medicine
DX: R07.81 Pleurodynia (principal)
CPT/HCPCS: 36415; 85379

== ENCOUNTER → 2021-02-15 06:50 | Outpatient (CLI) | payer OTHER, SELFPAY ==
[2021-02-13 13:01] VITALS: BMI 31.4
--- NOTE | 2021-02-15 13:48 | PFT ---
INTRODUCTION: The patient is a 20-year-old male that presents for pulmonary function studies secondary to a diagnosis of shortness of breath. Respiratory therapy reports good patient effort. Bronchodilators were used during testing. INTERPRETATION: Forced expiration spirometry demonstrates no evidence of a large airways obstructive ventilatory defect. There was no significant response to aerosolized bronchodilators. Spirograms are of good quality and plateau normally. The respiratory flow volume loop is normal. Body plethysmography was performed and reveals lung volumes to be within normal limits. Diffusing capacity by single breath CO is also within normal limits. IMPRESSION: Grossly normal pulmonary function studies.
== END ==
PROVIDERS: PCP Internal Medicine; Referring Provider Internal Medicine; Visit Provider Internal Medicine
DX: Z87.09 Personal history of other diseases of the respiratory system (principal)
CPT/HCPCS: 94060; 94726; 94729

== ENCOUNTER → 2021-04-19 12:24 | Outpatient (CLI) | payer OTHER, SELFPAY ==
[2021-04-05 08:52] VITALS: BMI 31.1
--- NOTE | 2021-04-19 12:25 | MRI_ITS ---
STUDY: MRI LEFT KNEE REASON FOR EXAM: Left anterior/medial knee pain after left knee injury 5.5 weeks ago. TECHNIQUE: Standardized fat and water weighted pulse sequences were obtained in all 3 orthogonal planes. COMPARISON: Radiographs 04/05/2021. FINDINGS: Normal medial meniscus. Normal hyaline cartilage of the medial femorotibial compartment. There is a small bone contusion of the posterior aspect of the medial tibial plateau (T2 coronal images 11, 12). Normal medial collateral ligamentous complex (MCL). Normal distal semimembranosus, gracilis and semitendinosus tendons. Normal lateral meniscus. Normal hyaline cartilage of the lateral femorotibial compartment. There is a small nondisplaced fracture of the anterior aspect of the lateral tibial plateau (proton-density coronal images 18-22). There is a subchondral bone contusion of the lateral femoral condyle (T2 sagittal images 19, 20). Normal proximal tibiofibular articulation. Normal lateral collateral (fibular) ligament. Normal popliteus tendon. Normal biceps femoris tendon. There is mild interstitial edema in the anterior cruciate ligament (T2 sagittal image 13) suggestive of a low-grade sprain. Normal posterior cruciate ligament (PCL). Normal congruent patellofemoral articulation. Normal hyaline cartilage of the patellofemoral compartment. Normal medial and lateral patellar retinaculum. Normal visualized quadriceps tendon. Normal patellar tendon. Normal Hoffa''s fat pad. There is no joint effusion. There is a thin medial patellar plica. The soft tissues are unremarkable. The otherwise visualized osseous structures are unremarkable. MRI/Lower Ext Joint Only (Routine) IMPRESSION: Small nondisplaced fracture of the anterior aspect of the lateral tibial plateau. Mild interstitial edema in the anterior cruciate ligament suggestive of a low-grade sprain. Subchondral bone contusion of the lateral femoral condyle and small bone contusion of the medial tibial plateau. Electronically Signed: Casimiro Thomason MD at 13:38 EDT Tel , Service support ,
== END ==
PROVIDERS: PCP Internal Medicine; Referring Provider Physician Assistant; Visit Provider Physician Assistant
DX: M25.362 Other instability, left knee (principal); M25.562 Pain in left knee; S83.209A Unspecified tear of unspecified meniscus, current injury, unspecified knee, initial encounter; S89.92XA Unspecified injury of left lower leg, initial encounter
CPT/HCPCS: 73721